=== PATIENT | female | born 1965 ===

== ENCOUNTER 2016-06-06 09:59 | Day surgery (SDC) | payer BC ==
[2016-06-06] MEDS ORDERED: MethylPREDNISolone Depo 40 mg/ml Inj ONE (10:22)
[2016-06-06] MEDS ORDERED: Lidocaine 1% Inj (20ml) ONE (10:23)
[2016-06-06] MEDS ORDERED: Iohexol 300 10 ML ONE (10:24)
[2016-06-06] MEDS ORDERED: Bupivacaine HCl 0.25% PF (10 ml) Inj ONE ×2 (10:24→10:25)
[2016-06-06] MEDS ORDERED: Propofol 10 mg/ml Inj (20 ML) ONE (10:26)
[2016-06-06] MEDS ORDERED: Midazolam 2 MG/2 ML VIAL ONE (10:27)
[2016-06-06 10:33] VITALS: BMI 30.2
[2016-06-06 10:44] VITALS: RESP 18
[2016-06-06] MEDS ORDERED: Lactated Ringer's 1,000 ML IV ONE (10:50)
[2016-06-06] MEDS ORDERED: Bupivacaine HCl 0.5% PF (10 ml) Inj ONE (10:53)
[2016-06-06] MEDS ORDERED: Lidocaine 1% Inj (20ml) IJ ONE ×2 (11:20)
[2016-06-06] MEDS ORDERED: MethylPREDNISolone Depo 40 mg/ml Inj INJ ONE (11:20)
[2016-06-06] MEDS ORDERED: Bupivacaine HCl 0.5% PF (10 ml) Inj IJ ONE (11:21)
--- NOTE | 2016-06-06 12:04 | OP ---
PROCEDURE DATE: 06/06/2016 PREOPERATIVE DIAGNOSIS: Lumbar facet syndrome. POSTOPERATIVE DIAGNOSIS: Lumbar facet syndrome. PROCEDURE: Right L3, L4, and L5 medial branch nerve block. ANESTHESIOLOGIST: Dr. Ko SURGEON: Dr. Lincoln ANESTHESIA TYPE: Monitored anesthesia care. COMPLICATIONS: None. SPECIMEN: None. PROCEDURE: After re-discussion of the procedure with the patient including its risks, benefits, alte rnatives, outcome data, possibility of no effect or increased pain, the patient consented to the proc edure. She denies any recent infections, bleeding tendencies, or being on anticoagulants. The decis ion was then made to proceed to the OR. The patient was placed on the fluoroscopy table in a prone position with 2 pillows underneath her abd omen. The back was prepped and draped in a usual sterile fashion and sterile technique was adhered t o during the entire procedure. The L3, L4, and L5 medial branch nerves are located at the intersecti on of the superior articular process and the transverse process of the L4 and L5 pedicle and also the sacral ala. The 3 above target areas were first visualized on the anterior-posterior view. Better visualization was achieved by turning the fluoroscopy towards the right at approximately 15 degrees. The skin overlying the 3 above target areas was then infiltrated with 1% lidocaine using a 25 gauge needle. Subsequently, a 22 gauge 3-1/2 inch spinal needle was then incrementally advanced under fluo roscopic guidance until tip of the needle made bony contact with all 3 target areas. After satisfact ory positioning of all 3 needles, approximately 3 mL of a 0.5% Marcaine and Depo-Medrol mixture was i njected into each needle. At the end of the case, the patient's back was cleaned and dried and Band- Aids were applied. The patient was then transferred to the recovery area in good condition without any signs of [place] or any neurological deficits. She will have a followup in the office in approximately 2-4 weeks . En-Wilson Lincoln MD cc: [phone] TT: 06/06/2016 12:03:18 en
[2016-06-06 13:07] VITALS: BP 140/80; PULSE 60; TEMP 98
[2016-06-06 13:10] VITALS: O2SAT 96
--- NOTE | 2016-06-06 15:00 | RAD ---
PROCEDURE: Lumbar Epidural Injection HISTORY: EPIDURAL TECHNIQUE: Fluoroscopic guidance was provided for epidural injection for pain management purposes. FINDINGS: Submitted images from the current procedure: 1.0 IMPRESSION: Fluoroscopic guidance provided for epidural injection. Please refer procedure.
== END 2016-06-06 13:30 | disposition home or self-care (01) ==
LOC: H.OPSURG 09:59
PROVIDERS: ATTEND Anesthesiology
DX: M47.816 Spondylosis without myelopathy or radiculopathy, lumbar region (principal); E11.9 Type 2 diabetes mellitus without complications
CPT/HCPCS: 64520; 82948; J1030; J2001; J2250; J2704; J3010; J7120